=== PATIENT | male | born 1995 | race Caucasian/White ===

== ENCOUNTER 2017-03-27 17:43 | Emergency (ER) | payer OTHER ==
[~2017-03-27] VITALS: Ht 175.3 cm; Wt 106.1 kg
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
[2017-03-27 20:06] VITALS: BP 128/72
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
[2017-03-27] MEDS ORDERED: IBUPROFEN600 M1 PO (21:04)
[2017-03-27] MEDS ORDERED: NORCO 5-325 TA1 EACH PO (21:04)
== END 2017-03-27 21:33 ==
LOC: ERH 17:43
DX: S62.304A Unspecified fracture of fourth metacarpal bone, right hand, initial encounter for closed fracture (principal); X58.XXXA Exposure to other specified factors, initial encounter; Y92.9 Unspecified place or not applicable; Y93.9 Activity, unspecified
CPT/HCPCS: 73130-RT

== ENCOUNTER 2017-04-02 04:40 | Emergency (ER) | payer OTHER ==
[~2017-04-02] VITALS: Ht 175.3 cm; Wt 104.3 kg
[~2017-04-02 04:40] MED LIST: IBUPROFEN600 M1 PO; NORCO 5-325 TA1 EACH PO
[2017-04-02 04:53] VITALS: BP 128/86
--- NOTE | 2017-04-02 05:01 | ED GI/GU/ABDOMINAL COMPLAINT ---
History of Present Illness General Chief Complaint: Abdominal Pain/Flank Pain Stated Complaint: ABD PAIN Source: patient, family, old records Exam Limitations: no limitations Vital Signs & Intake/Output Vital Signs & Intake/Output Vital Signs Date Time Temp Pulse Resp B/P B/P Pulse O2 O2 Flow FiO2 Mean Ox Delivery Rate 04/02 0453 96.8 72 18 128/86 96 Room Air Allergies Coded Allergies: bee venom protein (honey bee) (Severe, ANAPHYLACTIC SHOCK 03/27/17) nut - unspecified (Mild, HIVES 03/27/17) strawberry (Mild, HIVES 03/27/17) Reconcile Medications Hydrocodone/Acetaminophen ([place] 5-325 Tablet) 5 MG-325 MG TABLET 1 TAB PO Q6P PRN PAIN Ibuprofen 600 MG TABLET 1 TAB PO Q6P PRN PAIN with food Triage Note: PT TO ED WITH L SIDE BURNING ABD PAIN. PT STATES PAIN STARTED 3 HOURS AGO AND NO MEDS WERE TAKEN FOR THE PAIN. PT'S LAST BM WAS YESTERDAY AND WAS NORMAL. PT DENIES PAIN WITH URINATION. Triage Nurses Notes Reviewed? yes Onset: Just prior to arrival Duration: hour(s):, better, continues in ED, waxing and waning Timing: recent history Quality/Severity: aching, mild, moderate Location: epigastric Radiation: no radiation Activities at Onset: sleep Prior Abdominal Problems: none Past Sexual History: Unobtainable at this time No Modifying Factors: none Associated Symptoms: abdominal pain, heartburn, nausea/vomiting HPI: 4 hours prior to admission patient awoke with nausea and heartburn abdominal pain is mild to moderate generalized waxing and waning nonradiating. He is been taking ibuprofen and [place] for broken right hand. He denies fever chills chest pain cough shortness of breath headache dysuria rash bleeding diarrhea. Past History Travel History Traveled to [place] past 21 day No Medical History Any Pertinent Medical History? see below for history Neurological: NONE EENT: NONE Cardiovascular: NONE Respiratory: NONE Gastrointestinal: NONE Hepatic: NONE Renal: NONE Musculoskeletal: NONE Psychiatric: NONE Endocrine: NONE Blood Disorders: NONE Cancer(s): NONE Surgical History Surgical History: non-contributory Psychosocial History What is your primary language Vietnamese Tobacco Use: Never used ETOH Use: occasional use Illicit Drug Use: denies illicit drug use Family History Hx Contributory? No Review of Systems Review of Systems Constitutional: Reports: no symptoms. EENTM: Reports: no symptoms. Respiratory: Reports: no symptoms. Cardiovascular: Reports: no symptoms. GI: Reports: see HPI, abdominal pain, nausea. Genitourinary: Reports: no symptoms. Musculoskeletal: Reports: see HPI, joint pain. Skin: Reports: no symptoms. Neurological/Psychological: Reports: no symptoms. Hematologic/Endocrine: Reports: no symptoms. Immunologic/Allergic: Reports: no symptoms. All Other Systems: Reviewed and Negative Physical Exam Physical Exam General Appearance: well developed/nourished, alert, awake, anxious, mild distress, obese Head: atraumatic, normal appearance Eyes: Bilateral: normal appearance, PERRL, EOMI, normal inspection. Ears, Nose, Throat, Mouth: hearing grossly normal, moist mucous membrane Neck: normal inspection, supple, full range of motion, normal alignment Respiratory: normal breath sounds, chest non-tender, no respiratory distress, quiet respiration, lungs clear Cardiovascular: regular rate/rhythm, normal peripheral pulses, norml femoral pulses equa Peripheral Pulses: 4+ carotid (R), 4+ carotid (L) Gastrointestinal: normal bowel sounds, soft, non-tender, no organomegaly Male Genitals: normal genitalia Back: normal inspection, normal range of motion Extremities: evidence of injury, bony-point tenderness Neurologic/Psych: no motor/sensory deficits, awake, alert, oriented x 3, normal gait, normal mood/affect Skin: intact, normal color, warm/dry Core Measures ACS in differential dx? No Severe Sepsis Present: No Septic Shock Present: No Progress Differential Diagnosis: biliary colic, gastritis, PUD/GERD, ureterolithiasis Plan of Care: Orders Procedure Date/time Status URINALYSIS 04/02 459 Complete LIPASE 04/02 459 Complete COMPREHENSIVE METABOLIC PANEL 04/02 459 Complete CBC WITHOUT DIFFERENTIAL 04/02 459 Complete Laboratory Tests 04/02/17 0505: Anion Gap 12, Estimated GFR > 60, BUN/Creatinine Ratio 14.0, Glucose 98, Calcium 9.9, Total Bilirubin 1.3, AST 19, ALT 48, Alkaline Phosphatase 59, Total Protein 7.4, Albumin 4.5, Globulin 2.9, Albumin/Globulin Ratio 1.6, Lipase 73, CBC w Diff NO MAN DIFF REQ, RBC 5.38, MCV 84.5, MCH 27.9, RDW 13.1, MPV 9.8, Gran % 78.5 H, Lymphocytes % 15.9 L, Monocytes % 5.0, Eosinophils % 0.5, Basophils % 0.1, Absolute Granulocytes 6.8 H, Absolute Lymphocytes 1.4, Absolute Monocytes 0.4, Absolute Eosinophils 0, Absolute Basophils 0, PUBS MCHC 33.1 04/02/17 0500: Urine Color YEL, Urine Clarity CLEAR, Urine pH 7.0, Ur Specific [place] 1.015, Urine Protein NEG, Urine Ketones NEG, Urine Nitrite NEG, Urine Bilirubin NEG, Urine Urobilinogen 0.2, Ur Leukocyte Esterase NEG, Ur Microscopic EXAM NOT REQUIRED, Urine Hemoglobin NEG, Urine Glucose NEG Initial ED EKG: none Departure Departure Time of Disposition: 607 Disposition: HOME OR SELF CARE Condition: Stable Clinical Impression Primary Impression: Gastritis medicamentosa Referrals: PATIENT HAS NO PRIMARY CARE DR (PCP/Family) Additional Instructions: Zantac or antacids as needed Departure Forms: Customer Survey General Discharge Information
[2017-04-02 05:27] LABS: ABSOLUTE BASOPHIL COUNT 0 /CUMM (0.0-0.2); ABSOLUTE EOSINOPHIL COUNT 0 /CUMM (0.0-0.7); ABSOLUTE GRANULOCYTE CT 6.8 /CUMM (1.4-6.5); ABSOLUTE LYMPH COUNT 1.4 /CUMM (1.2-3.4); ABSOLUTE MONOCYTE COUNT 0.4 /CUMM (0.10-0.60); BASOPHIL % 0.1 % (0.0-2.0); EOSINOPHIL % 0.5 % (0-5); GRANULOCYTE % 78.5 % (42.2-75.2); HEMATOCRIT 45.4 % (42-52); MEAN CORPUSCULAR HGB 27.9 PG (27.0-31.0); MEAN CORPUSCULAR HGB CONC 33.1 G/DL (33.0-37.0); MEAN CORPUSCULAR VOLUME 84.5 FL (80.0-94.0); MEAN PLATELET VOLUME 9.8 FL (7.4-10.4); PLATELET COUNT 230 /CUMM (130-400); RBC DISTRIBUTION WIDTH 13.1 % (11.5-14.5); RED BLOOD CELL CT 5.38 /CUMM (4.70-6.10); WHITE BLOOD CELL COUNT 8.6 /CUMM (4.8-10.8)
== END 2017-04-02 06:23 ==
LOC: ERH 04:40
PROVIDERS: Emergency Medicine
DX: K29.60 Other gastritis without bleeding (principal)
CPT/HCPCS: 81003